=== PATIENT | female | born 2005 | race Caucasian/White ===

== ENCOUNTER 2024-09-03 08:34 | Emergency (ER) | payer BC, SELFPAY ==
[2024-09-03 08:50] VITALS: BP 124/87; PULSE 76; RESP 16; TEMP 37; O2SAT 100
--- NOTE | 2024-09-03 08:58 | ED.EYEPROB ---
HPI - Eye Problem General Chief complaint: Eye Problems Stated complaint: Eye Pain Time Seen by Provider: 09/03/24 08:58 Source: patient Mode of arrival: ambulatory Limitations: no limitations History of Present Illness HPI Narrative: 18-year-old female presented for complaint of left eye pain worsening since yesterday afternoon. States she thinks she has a scratch on the eye which she has had in the past. Endorses photophobia and eye redness. Denies drainage or swelling. Patient is a contact lens wearer. She has removed the left contact lens and says afterwards the eye was even more sensitive. She used antibiotic drops from a previous corneal abrasion. She says her contact lenses are daily wear, and she has been compliant with removal and not sleeping in them. MD chief complaint: eye pain Related Data Home Medications Medication Instructions Recorded Confirmed levonorgestrel-ethinyl estradiol 1 tablet PO DAILY 09/03/24 09/03/24 0.1 mg-20 mcg tablet (Vienva) Allergies Allergy/AdvReac Type Severity Reaction Status Date / Time amoxicillin Allergy Rash Verified 09/03/24 08:49 Penicillins Allergy Rash Verified 09/03/24 08:49 Review of Systems Review of Systems: CONSTITUTIONAL: Denies body aches, fever, chills EYES:Endorses redness and pain to left eye, photophobia Denies visual changes, FB sensation, drainage ENT: Denies rhinorrhea, congestion, sore throat, or otalgia. CARDIOVASCULAR: Denies chest pain, palpitations RESPIRATORY: Denies cough or dyspnea. SKIN: Denies rash, itching, or wounds. NEUROLOGIC: Denies headache All systems reviewed & are unremarkable except as noted in HPI and below PMFSH Comments At time of signature, I have reviewed and agree with nursing past medical, surgical, social and family history unless otherwise noted. Please see nursing chart for further information. There is no relevant family history pertinent to the presenting complaint Exam Narrative: GENERAL: Well-appearing HEAD: Normocephalic, atraumatic. EYES: Left conjunctival injection, No drainage or eye lid swelling. PERRLA, EOMI. Lid eversion shows no FB. No corneal abrasion or ulceration noted. ENT: Mucous membranes pink and moist. No rhinorrhea. CHEST: Clear to auscultation. HEART: Regular rate and rhythm. SKIN: Warm, dry, no rash. Normal skin turgor. NEURO: No focal deficits. Alert and oriented x3 PSYCH: Normal affect. Course Course Emergency Course: Patient is aware of diagnosis, understands and agrees to treatment plan. Anticipatory guidance given. Patient agrees to follow-up as directed and is aware of reasons to seek care at the emergency department. Portions of this record may have been created with voice recognition software Level of Care: Express Care Visit Vital Signs Vital signs: Vital Signs Temperature 98.6 F 09/03/24 08:50 Pulse Rate 76 09/03/24 08:50 Respiratory Rate 16 09/03/24 08:50 Blood Pressure 124/87 09/03/24 08:50 Pulse Oximetry 100 09/03/24 08:50 Oxygen Delivery Room Air 09/03/24 08:50 Temperature 98.6 F 09/03/24 08:50 Pulse Rate 76 09/03/24 08:50 Respiratory Rate 16 09/03/24 08:50 Blood Pressure 124/87 09/03/24 08:50 Pulse Oximetry 100 09/03/24 08:50 Oxygen Delivery Room Air 09/03/24 08:50 Procedures FB Removal Eye Foreign Body #1: Foreign Body Removal Date: 09/03/24 Location: eye (L) Topical anesthetic used: tetracaine Evidence of corneal penetration: No Procedure performed under: other (flores lamp) Patient tolerated procedure: well and no complications Foreign Body Removal Narrative: Left Eye was anesthetized with 1 drop of tetracaine and anesthesia was achieved. Lid was everted and examined for foreign body. No foreign body, corneal abrasion, or ulceration identified with Flores lamp. The eye was flushed with eye wash. Pt tolerated procedure well. MDM - Eye
== END 2024-09-03 09:18 | disposition home or self-care (01) ==
PROVIDERS: Emergency Provider Nurse Practitioner Family
DX: H57.12 Ocular pain, left eye (principal)
CPT/HCPCS: 99213; A9270; G0463